=== PATIENT | male | born 1955 | race Caucasian/White ===

== ENCOUNTER → 2020-03-19 | Outpatient (CLI) | payer BC ==
[~2020-03-19] MED LIST: ASPIRIN E.C. 8181 MG PO; EFFIENT10 MG PO; HYGROTON25 MG PO; LIPITOR 80MG80 MG PO; LISINOPRIL20 MG PO; NEXIUM 40MG40 MG PO; NEXIUM40 MG PO; PRINIVIL40 MG PO; TENORMIN 2525 MG/TAB PO; ZESTRIL 20MG TA20 MG PO; ZOCOR
== END ==
LOC: COL.RAD 12:30
DX: D46.9 Myelodysplastic syndrome, unspecified (principal); K80.20 Calculus of gallbladder without cholecystitis without obstruction; D47.3 Essential (hemorrhagic) thrombocythemia
CPT/HCPCS: Q9967

== ENCOUNTER 2021-08-05 10:27 | Day surgery (SDC) | payer BC ==
[~2021-08-05] VITALS: Ht 172.7 cm; Wt 85.3 kg
--- NOTE | 2021-08-05 10:50 | NUR ---
65 year old patient ambulated to bay #4 without difficulty, using a steady gait. Medications and HX reviewed at this time. Vitals obtained. Consent reveiwed and signed. Patient verbalized understanding procedure. Patient voided after putting on a clean gown. Warm blanket provided. Non-slip socks are on. IV started in R FA on first attemt with #20. LR is infusing without difficulty and set to 100ml/hr. First and last name + verified with patient and confirmed with his ID band. PO pepcid administered. SEE PHYSICAL ASSESSMENT. was brought to room. Call walsh is within reach. Side rails x2. Will continue to monitor.
[2021-08-05] MEDS ORDERED: HYDRODIURIL50 MG PO (11:08)
[2021-08-05] MEDS ORDERED: LISINOPRIL/HCTZ (11:10)
[2021-08-05] MEDS ORDERED: CRESTOR20 MG PO (11:10)
[2021-08-05] MEDS ORDERED: NEXIUM 20MG20 MG PO (11:11)
[2021-08-05] MEDS ORDERED: WELLBUTRIN XL150 MG PO (11:12)
[2021-08-05] MEDS ORDERED: AMBIEN CR6.25 MG PO (11:12)
[2021-08-05] MEDS ORDERED: CIALIS20 MG PO (11:12)
[2021-08-05] MEDS ORDERED: GINSENG EXTRAC100 MG PO (11:13)
[2021-08-05 11:39] VITALS: BP 138/87; PULSE 50; TEMP 97.8
[2021-08-05] MEDS ORDERED: ULTRAM 50MG TAB50 MG PO (13:52)
[2021-08-05 14:30] VITALS: BP 129/77; PULSE 52; TEMP 97.3
--- NOTE | 2021-08-05 14:30 | NUR ---
Patient arrived on cart from PACU, escorted by Dania BARRAGAN. Report obtained. Vitals obtained and are WNL. is not in the waiting room, however patient stated it is AOK to call her. Patient requested ice water to drink. Side rails x2. Call walsh is at bedside. Patient is resting, arouses to name and can answer questions.
--- NOTE | 2021-08-05 14:32 | NUR ---
O2 continues at 2L via nasal cannula.
[2021-08-05 14:45] VITALS: BP 129/82; PULSE 57
--- NOTE | 2021-08-05 14:45 | NUR ---
Patient is tolerating his ice water well. O2 titrated down to 1L via nasal cannula. Vitals obtained. Patients is present. Patient requested white toast with grape jelly.
[2021-08-05 15:00] VITALS: BP 132/93; PULSE 55
--- NOTE | 2021-08-05 15:00 | NUR ---
Patient is tolerating his white toast. Denies N/V. Vitals obtained. O2 discontinued.
--- NOTE | 2021-08-05 15:17 | NUR ---
Patient was assisted ambulating to bathroom. Patient was able to successfully void. IV discontinued at this time due to impending discharge. Catheter tip intact and pressure bandage applied. Patient is changing in his bay with his present. Patient denied needing help.
--- NOTE | 2021-08-05 15:30 | NUR ---
Discharge instructions and patient education were reviewed with the patient at this time. Patient denied further questions or concerns and signed the realted paperwork. Patient was then escorted via wheelchair to the main patient entrence. His is present to drive the patient home. Patient was transferred into her care at this time. Patient has his discharge packet in hand and has his personal belongings.
== END 2021-08-05 15:40 | disposition home or self-care (01) ==
LOC: SDCO 10:27
DX: K40.90 Unilateral inguinal hernia, without obstruction or gangrene, not specified as recurrent (principal); E78.5 Hyperlipidemia, unspecified; I10 Essential (primary) hypertension; I25.10 Atherosclerotic heart disease of native coronary artery without angina pectoris; K21.9 Gastro-esophageal reflux disease without esophagitis; D75.839 Thrombocytosis, unspecified; M19.90 Unspecified osteoarthritis, unspecified site; D47.3 Essential (hemorrhagic) thrombocythemia; Z79.82 Long term (current) use of aspirin; Z79.899 Other long term (current) drug therapy; Z95.818 Presence of other cardiac implants and grafts
CPT/HCPCS: C1781; J0690; J1100; J2405; J2704; J3010; J7120